=== PATIENT | female | born 1975 | race Caucasian/White ===

== ENCOUNTER 2020-07-25 13:43 | Emergency (ER) | payer BC ==
--- NOTE | 2020-07-25 14:38 | EDM.PDOC ---
ED HPI GENERAL MEDICAL PROBLEM - General Chief Complaint: Neurological Problem Stated Complaint: FELL HIT HEAD Time Seen by Provider: 07/25/20 14:35 Source of Information: Reports: Patient History Limitations: Reports: No Limitations - History of Present Illness INITIAL COMMENTS - FREE TEXT/NARRATIVE: on Wednesday the pt let her dog out and the neck was icey. She fell forward and hit the front of her head. She does not know if she was knocked out. She had a very severe headache and she was vomiting for 2 days. She last vomited yesterday. She still is feeling very off balance. She is not able to focus with her eyes. . She thinks her speech is better but it was very much affected. Onset: Other ( started Wednesday. ) Duration: Day(s): Location: Reports: Generalized, Other (pt is having severe neck pain. ) Associated Symptoms: Reports: Confusion, Other ( dizziness, neck pain. 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: Neurological History: Reports: Concussion - Past Surgical History HEENT Surgical History: Reports: Tonsillectomy Social & Family History - Tobacco Use Tobacco Use Status *Q: Never Tobacco User - Recreational Drug Use Recreational Drug Use: No ED ROS GENERAL - Review of Systems Review Of Systems: See Below Constitutional: Reports: No Symptoms HEENT: Reports: No Symptoms Respiratory: Reports: No Symptoms Cardiovascular: Reports: No Symptoms Endocrine: Reports: No Symptoms GI/Abdominal: Reports: Nausea, Vomiting : Reports: No Symptoms Musculoskeletal: Reports: Other (pt feels like she has alot of tightness in her post cervical area. ) Skin: Reports: No Symptoms Neurological: Reports: Confusion, Dizziness, Headache, Trouble Speaking Psychiatric: Reports: Anxiety ED EXAM, NEURO - Physical Exam Exam: See Below Text/Narrative:: pt arrived with alot of tightness in her post cervical area. She is having headaches, visual blurring, dizziness, feeling very off balance. She fell and hit the friont of her head on Wednesday. Exam Limited By: No Limitations General Appearance: Alert, Anxious, Other (pupils equal and reactive. ) Ears: Normal TMs Nose: Normal Inspection Throat/Mouth: Normal Inspection Head Exam: Other (no bruising or swelling noted. ) Neck: Tender Lateral, Other Respiratory/Chest: No Respiratory Distress (has alot of tightness in the post cervical area. ) Cardiovascular: Regular Rate, Rhythm GI/Abdominal: Soft, Non-Tender (Female) Exam: Deferred Rectal (Female) Exam: Deferred Neurological: Alert, Oriented x 3 Back Exam: Normal Inspection Extremities: Normal Inspection Psychiatric: Anxious Course - Vital Signs Last Recorded V/S: Last Vital Signs Temp 36.6 C 07/25/20 14:13 Pulse 85 07/25/20 14:13 Resp 18 07/25/20 14:13 BP 149/99 H 07/25/20 14:13 Pulse Ox 97 07/25/20 14:13 - Re-Assessments/Exams Free Text/Narrative Re-Assessment/Exam: 07/25/20 15:48 pt had a cat scan of the head and neck which did not show acute findings. Departure - Departure Time of Disposition: 15:41 Disposition: Home, Self-Care 01 Condition: Fair Clinical Impression: Concussion - Discharge Information Referrals: Amparo Belcher CNM [Primary Care Provider] - Forms: ED Department Discharge Care Plan Goals: pt has sig cervical spasm-- ice to the post cervical area. use flexeril 5 mg bid. appt with Indu Belcher Wednesday at nine forty five, Pt needs to be seen in the concussion clinic and followed. Pt should not return to work until she is seen by Indu Belcher, no driving. Sepsis Event Note (ED) - Evaluation Sepsis Screening Result: No Definite Risk - Focused Exam Vital Signs: Vital Signs Temp Pulse Resp BP Pulse Ox 07/25/20 14:13 36.6 C 85 18 149/99 H 97 07/25/20 14:10 36.6 C 85 18 149/99 H 97
--- NOTE | 2020-07-25 15:12 | CT ---
Head wo Cont CLINICAL HISTORY: Fall COMPARISON: 2009 TECHNIQUE: Transverse scans were obtained from the base of the skull through the vertex without IV contrast on a multislice, multidetector CT scanner. Auto dosage reduction and iterative reconstruction techniques employed. FINDINGS: No focal abnormal parenchymal density is identified.. There is no mass effect, hemorrhage, or extraaxial collection. The basal cisterns and sulci over the convexities are normal. The ventricles are normal for age. IMPRESSION: No acute intracranial process
--- NOTE | 2020-07-25 15:29 | CRLCT ---
INDICATION: Fall TECHNIQUE: CT cervical spine without contrast. COMPARISON: None FINDINGS: Vertebral alignment: Alignment is normal. Vertebrae: There are no fractures or suspicious bony lesions. Discs and facet joints: Space narrowing degenerative changes C5-C6. Extraspinal findings: Prevertebral soft tissues, visualized airway, and visualized lungs are unremarkable. IMPRESSION: Atraumatic appearance of the cervical spine. Dictated by Jin Juarez MD @ 07/25/2020 3:28:00 PM Please note that all CT scans at this facility use dose modulation, iterative reconstruction, and/or weight-based dosing when appropriate to reduce radiation dose to as low as reasonably achievable. Dictated by: Jin Juarez MD @ 07/25/2020 15:28:08 (Electronically Signed)
== END 2020-07-25 15:58 | disposition home or self-care (01) ==
LOC: JP.ED 13:43
DX: S06.0X9A Concussion with loss of consciousness of unspecified duration, initial encounter (principal); Z79.899 Other long term (current) drug therapy; W22.8XXA Striking against or struck by other objects, initial encounter
CPT/HCPCS: 70450; 70450-26; 72125; 99284-25